=== PATIENT | male | born 1945 | race Caucasian/White ===

== ENCOUNTER 2023-10-08 20:37 | Emergency (ER) | payer OTHER ==
[~2023-10-08] VITALS: Ht 180.3 cm; Wt 80.7 kg
[2023-10-08 20:52] VITALS: BP_SYST 184; PULSE 69; RESP 18; TEMP 97.6; O2SAT 98
[2023-10-08 22:01] VITALS: BP_SYST 180; PULSE 61; RESP 18; TEMP 97.8; O2SAT 99
== END 2023-10-08 22:01 | disposition home or self-care (01) ==
LOC: SED 20:37
DX: S60.412A Abrasion of right middle finger, initial encounter (principal); I10 Essential (primary) hypertension; Z79.899 Other long term (current) drug therapy; V89.2XXA Person injured in unspecified motor-vehicle accident, traffic, initial encounter; Y93.89 Activity, other specified; Y92.89 Other specified places as the place of occurrence of the external cause; Y99.8 Other external cause status
CPT/HCPCS: 99281